=== PATIENT | female | born 1985 | race Caucasian/White ===

== ENCOUNTER → 2016-10-28 | Outpatient (CLI) | payer OTHER ==
[2016-10-28 12:19] LABS: HEMOGLOBIN 13.7 gm/dl (12.3-15.3); RED BLOOD COUNT 4.45 M/UL (4.00-5.10); WHITE BLOOD COUNT 5.3 K/UL (4.5-11.0)
[2016-10-28 12:33] LABS: BUN/CREATININE RATIO 33 (0-10)
== END ==
LOC: LAB 11:15
PROVIDERS: Family Medicine
DX: I10 Essential (primary) hypertension (principal); R35.0 Frequency of micturition
CPT/HCPCS: 36415; 80053; 80061; 85025; 87086

== ENCOUNTER → 2021-04-16 | Outpatient (CLI) | payer OTHER ==
[~2021-04-16] MED LIST: FLOMAX0.4 MG PO; NORCO 7.5-3251 EACH PO; TORADOL 10 MG T10 MG PO; ZOFRAN4 MG PO
== END ==
LOC: KOH-I 11:22
DX: M79.641 Pain in right hand (principal); M85.641 Other cyst of bone, right hand
CPT/HCPCS: 73130

== ENCOUNTER → 2021-12-02 | Outpatient (CLI) | payer OTHER | LOC: EMI 16:05 | DX: G43.909 Migraine, unspecified, not intractable, without status migrainosus (principal) | CPT/HCPCS: 70551 ==